=== PATIENT | male | born 1970 | race African-American/Black ===

== ENCOUNTER 2019-08-17 08:55 | Emergency (ER) | payer SELFPAY ==
[~2019-08-17] VITALS: Ht 185.4 cm; Wt 82.6 kg
[2019-08-17] MEDS ORDERED: FENO134C PO (09:15)
[2019-08-17] MEDS ORDERED: AMLO10TA8 PO (09:15)
[2019-08-17] MEDS ORDERED: LISI10TA2 PO (09:15)
[2019-08-17] MEDS ORDERED: TAMSULOSIN 0.4 MG CAP.ER.24H. PO ONE (09:30)
[2019-08-17] MEDS ORDERED: IV NORMAL SALINE 1000ML BAG 1,000 ML IV ONE (09:30)
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
[2019-08-17 09:37] LABS: BILIRUBIN,URINE NEGATIVE (NEG); CLARITY,URINE CLEAR; COLOR,URINE YELLOW; NITRITE,URINE NEGATIVE (NEG); PH,URINE 6.5; PROTEIN,URINE NEGATIVE (NEG-TRACE); UROBILINOGEN,URINE 0.2 mg/dL (0.2 mg/dL)
[2019-08-17 09:53] LABS: BACTERIA,URINE FEW /HPF (0-FEW); RBC,URINE OCC /HPF (0-2); WBC,URINE RARE /HPF (0-4)
[2019-08-17 10:07] LABS: BASO # 0.1 x10^3/uL (0.0-0.2); BASO % 1 % (0-3); EOS # 0.1 x10^3/uL (0.0-0.7); EOS % 2 % (0-3); HEMATOCRIT 42.2 % (39.0-53.0); HEMOGLOBIN 14.8 g/dL (13.0-17.5); LYMPH # 1.9 x10^3/uL (1.0-4.8); LYMPH % 29 % (24-48); MEAN CORPUSCULAR HEMOGLOBIN 32 pg (25-35); MEAN CORPUSCULAR HGB CONC 35 g/dL (31-37); MEAN CORPUSCULAR VOLUME 93 fL (79-100); MONO # 0.5 x10^3/uL (0.0-1.1); MONO % 8 % (0-9); NEUT # 3.9 x10^3/uL (1.8-7.7); NEUT % 60 % (31-73); PLATELET COUNT 317 x10^3/uL (140-400); RED BLOOD COUNT 4.56 x10^6/uL (4.30-5.70); RED CELL DISTRIBUTION WIDTH 13.2 % (11.5-14.5); WHITE BLOOD COUNT 6.4 x10^3/uL (4.0-11.0)
[2019-08-17 10:23] LABS: CALCIUM 9.2 mg/dL (8.5-10.1); CREATININE 0.9 mg/dL (0.7-1.3); GFR 107.6; POTASSIUM 3.9 mmol/L (3.5-5.1)
[2019-08-17 10:29] LABS: ALBUMIN 3.8 g/dL (3.4-5.0); ALBUMIN/GLOBULIN RATIO 1.3 (1.0-1.7); TOTAL BILIRUBIN 0.4 mg/dL (0.2-1.0); TOTAL PROTEIN 6.8 g/dL (6.4-8.2)
--- NOTE | 2019-08-17 10:41 | RAD ---
EXAM: Abdomen and pelvis CT without intravenous contrast. HISTORY: Urinary frequency. Prostatomegaly. TECHNIQUE: Computed tomographic images of the abdomen and pelvis were obtained without contrast. Multiplanar reformatting was performed. *One or more of the following individualized dose reduction techniques were utilized for this examination: 1. Automated exposure control. 2. Adjustment of the mA and/or kV according to patient size. 3. Use of iterative reconstruction technique. COMPARISON: None. FINDINGS: Evaluation of the lower thorax demonstrates posterior dependent atelectasis. There is lingular atelectasis or scarring. There is no infiltrate or pleural effusion. No hepatic lesion is seen. The liver is upper normal in size. The gallbladder, pancreas, spleen and stomach are unremarkable. There is adrenal gland thickening without a discrete nodule. The right kidney is unremarkable. There is a prominent left renal collecting system without evidence of gerardo hydronephrosis or obstructing lesion. There is no appendicitis. There is colonic diverticulosis. There are segments of wall thickening involving the colon likely due to relative underdistention or peristalsis. There is no convincing pericolonic stranding to suggest colitis. There is stool within the rectal vault. No pathologically enlarged lymph node is seen. There is aortobiiliac atherosclerosis. The urinary bladder is unremarkable. There are a few calcifications within the prostate. The prostate is prominent in size, measuring 5.6 cm in maximum dimension. There is degenerative change involving the lumbar spine. There is avascular necrosis involving the right femoral head and degenerative change involving both hips. There are few benign bone islands. There is lumbar scoliosis. IMPRESSION: 1. Colonic diverticulosis. 2. Mild prostatomegaly. There is a slightly prominent left renal collecting system without gerardo hydronephrosis or nephrolithiasis. The urinary bladder is unremarkable. 3. Right femoral head avascular necrosis. Electronically signed by: Dottie Ford MD (08/17/2019 10:38 AM) [place] [id number]
[2019-08-17 11:21] VITALS: BP 167/107
[2019-08-17] MEDS ORDERED: TAMS0.4C97 PO (11:24)
[2019-08-17 11:47] LABS: BARBITURATES NEG (NEG); BENZODIAZEPINES NEG (NEG); CANNABINOIDS POS (NEG); COCAINE NEG (NEG); METHADONE NEG (NEG); OPIATES NEG (NEG); PHENCYCLIDINE NEG (NEG)
[2019-08-17 11:48] LABS: AMPHETAMINE/METHAMPHETAMINE NEG (NEG)
== END 2019-08-17 11:33 | disposition home or self-care (01) ==
LOC: ER 08:55
DX: N40.0 Benign prostatic hyperplasia without lower urinary tract symptoms (principal); R63.1 Polydipsia; E78.00 Pure hypercholesterolemia, unspecified; I10 Essential (primary) hypertension; F10.10 Alcohol abuse, uncomplicated; F12.90 Cannabis use, unspecified, uncomplicated; Z98.890 Other specified postprocedural states
CPT/HCPCS: 74176; 80053; 80307; 81001; 82962; 83690; 85025; 87491; 87591; 99285; G0480; J7030; 36415

== ENCOUNTER 2020-04-24 20:09 | Emergency (ER) | payer SELFPAY ==
[~2020-04-24] VITALS: Ht 185.4 cm; Wt 84.1 kg
[~2020-04-24 20:09] MED LIST: AMLO10TA8 PO; FENO134C PO; LISI10TA2 PO; TAMS0.4C97 PO
[2020-04-24] MEDS ORDERED: ACETAMINOPHEN 500 MG TABLET PO ONE (20:30)
[2020-04-24] MEDS ORDERED: IV NORMAL SALINE 1000ML BAG 1,000 ML IV ONE (20:30)
[2020-04-24] MEDS ORDERED: ONDANSETRON ODT 4 MG TAB.RAPDIS. PO ONE (20:30)
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
[2020-04-24 20:54] LABS: BASO # 0.1 x10^3/uL (0.0-0.2); BASO % 1 % (0-3); EOS % 0 % (0-3); HEMATOCRIT 48.9 % (39.0-53.0); HEMOGLOBIN 16.9 g/dL (13.0-17.5); LYMPH # 3.4 x10^3/uL (1.0-4.8); LYMPH % 50 % (24-48); MEAN CORPUSCULAR HEMOGLOBIN 31 pg (25-35); MEAN CORPUSCULAR HGB CONC 34 g/dL (31-37); MEAN CORPUSCULAR VOLUME 90 fL (79-100); MONO # 0.4 x10^3/uL (0.0-1.1); MONO % 6 % (0-9); NEUT % 43 % (31-73); PLATELET COUNT 309 x10^3/uL (140-400); RED BLOOD COUNT 5.42 x10^6/uL (4.30-5.70); RED CELL DISTRIBUTION WIDTH 13.2 % (11.5-14.5); WHITE BLOOD COUNT 6.9 x10^3/uL (4.0-11.0)
[2020-04-24 21:00] LABS: CALCIUM 9.4 mg/dL (8.5-10.1); GFR 95.3; POTASSIUM 3.7 mmol/L (3.5-5.1)
--- NOTE | 2020-04-24 21:13 | RAD ---
Chest AP portable at 2048: Reason for examination: Cough. Comparison is made to previous study dated 06/07/2015. The heart size is normal. Mediastinum is unremarkable. Lung mak are clear. No acute bony abnormalities are seen. There appear to be small metallic densities adjacent to the left glenoid which are unchanged. Impression: No acute cardiopulmonary disease. Electronically signed by: Jennifer Bustamante MD (04/24/2020 9:10 PM) [facility]
[2020-04-24 21:42] VITALS: BP 152/100
--- NOTE | 2020-04-25 07:05 | EKG ---
[facility] [address] [place] [address] Test Date: 2020-04-24 Test Time: 20:42:24 Pat Name: KATHERINE SOSA Department: Room: Gender: M [employer]: : 1970 Requested By: DEVYN BURGOS Order Number: [id number] Reading MD: Measurements Intervals [place] Rate: 82 P: 56 MD: 178 QRS: -50 QRSD: 98 T: 52 QT: 384 QTc: 452 Interpretive Statements SINUS RHYTHM ABNORMAL LEFT AXIS DEVIATION QRS(T) CONTOUR ABNORMALITY CONSIDER INFERIOR MYOCARDIAL DAMAGE ABNORMAL ECG RI6.02 No previous ECG available for comparison
== END 2020-04-24 21:55 | disposition home or self-care (01) ==
LOC: ER 20:09
DX: R43.0 Anosmia (principal); Z20.828 Contact with and (suspected) exposure to other viral communicable diseases; R50.9 Fever, unspecified; R53.83 Other fatigue; R05 Cough; E78.00 Pure hypercholesterolemia, unspecified; I10 Essential (primary) hypertension; F17.200 Nicotine dependence, unspecified, uncomplicated; F12.90 Cannabis use, unspecified, uncomplicated; Z98.890 Other specified postprocedural states
CPT/HCPCS: 36415; 71045; 80048; 84484; 85025; 85379; 93005; 96360; 99285; J7030; U0003

== ENCOUNTER 2020-09-18 06:40 | Emergency (ER) | payer SELFPAY ==
[~2020-09-18] VITALS: Ht 185.4 cm; Wt 83.0 kg
[~2020-09-18 06:40] MED LIST changes: +AMLO-187 PO; -AMLO10TA8 PO
[2020-09-18 06:59] VITALS: BP 149/87
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
[2020-09-18] MEDS ORDERED: diazePAM 5 MG TABLET PO ONE (07:30)
[2020-09-18 07:38] LABS: BASO % 0 % (0-3); EOS % 0 % (0-3); HEMATOCRIT 54.7 % (39.0-53.0); HEMOGLOBIN 18.5 g/dL (13.0-17.5); LYMPH # 2.8 x10^3/uL (1.0-4.8); LYMPH % 39 % (24-48); MEAN CORPUSCULAR HEMOGLOBIN 31 pg (25-35); MEAN CORPUSCULAR HGB CONC 34 g/dL (31-37); MEAN CORPUSCULAR VOLUME 92 fL (79-100); MONO # 0.4 x10^3/uL (0.0-1.1); MONO % 5 % (0-9); NEUT # 3.8 x10^3/uL (1.8-7.7); NEUT % 55 % (31-73); PLATELET COUNT 340 x10^3/uL (140-400); RED BLOOD COUNT 5.97 x10^6/uL (4.30-5.70); RED CELL DISTRIBUTION WIDTH 13.8 % (11.5-14.5); WHITE BLOOD COUNT 7.1 x10^3/uL (4.0-11.0)
[2020-09-18 07:49] LABS: CALCIUM 9.6 mg/dL (8.5-10.1); GFR 94.9
[2020-09-18 07:56] LABS: ALBUMIN 3.9 g/dL (3.4-5.0); ALBUMIN/GLOBULIN RATIO 1.1 (1.0-1.7); TOTAL BILIRUBIN 0.8 mg/dL (0.2-1.0); TOTAL PROTEIN 7.6 g/dL (6.4-8.2)
--- NOTE | 2020-09-18 08:01 | RAD ---
EXAM: XR BILATERAL HIP (WITH OR WITHOUT PELVIS) 2 VIEWS_RIGHT 09/18/2020 7:36 AM CLINICAL INDICATION: Right hip pain for one month COMPARISON: CT abdomen pelvis 08/17/2019 TECHNIQUE: AP view of the pelvis and AP and frog-leg lateral view of the right hip. FINDINGS: No acute fracture. Alignment is normal. There is moderate right hip joint space narrowing with subchondral cysts and sclerosis in the acetabulum and femoral head. There are right femoral head osteophytes. Mild left hip joint space narrowing with subchondral cysts, sclerosis, and small osteop hytes. Pubic symphysis and sacroiliac joints are normal. There is mild lumbar degenerative disc disea se. IMPRESSION: Moderate osteoarthrosis of the right hip. Electronically signed by: Cheryl Mccoy MD (09/18/2020 7:58 AM) [id number]
[2020-09-18] MEDS ORDERED: METH4TAB2 PO (08:17)
[2020-09-18] MEDS ORDERED: CYCL10TA2 PO (08:17)
== END 2020-09-18 08:41 | disposition home or self-care (01) ==
LOC: ER 06:40
DX: M16.11 Unilateral primary osteoarthritis, right hip (principal); M54.31 Sciatica, right side; D75.1 Secondary polycythemia; E78.00 Pure hypercholesterolemia, unspecified; I10 Essential (primary) hypertension; F17.200 Nicotine dependence, unspecified, uncomplicated; F12.90 Cannabis use, unspecified, uncomplicated; F10.10 Alcohol abuse, uncomplicated; Z98.890 Other specified postprocedural states
CPT/HCPCS: 36415; 73502; 80053; 85025; 99284

== ENCOUNTER → 2021-11-17 | Outpatient (CLI) | payer SELFPAY ==
[~2021-11-17] MED LIST changes: +CYCL10TA19 PO; -FENO134C PO; +FENO134C22 PO; +LISI10TA16 PO; -LISI10TA2 PO; +METH4TAB2 PO
--- NOTE | 2021-11-17 12:35 | RAD ---
XR THORACIC SPINE 3VIEWS DATE: 11/17/2021 9:47 AM INDICATION: UPPER BACK PAIN COMPARISON: None. FINDINGS: The upper thoracic vertebrae are obscured on the lateral view by overlying soft tissue and osseous st ructures. Bones/Alignment: No evidence of acute compression fracture. No listhesis. Joints: Multilevel mild degenerative disc disease. Miscellaneous: None. IMPRESSION: Mild thoracic spondylosis. Electronically signed by: Clinton Virk MD (11/17/2021 12:32 PM) [id number]
== END ==
LOC: RAD 09:34
PROVIDERS: ATTEND Family Medicine
DX: M47.814 Spondylosis without myelopathy or radiculopathy, thoracic region (principal); M51.34 Other intervertebral disc degeneration, thoracic region
CPT/HCPCS: 72072